=== PATIENT | male | born 1960 | race Caucasian/White ===

== ENCOUNTER 2019-09-01 09:52 | Emergency (ER) | payer BC ==
[2019-09-01 11:04] VITALS: BP 162/100
--- NOTE | 2019-09-01 11:09 | UC ---
UC General HPI - HPI Summary HPI Summary: Patient is a 59-year-old male presenting with tick bite to left abdomen that he noticed last night and is unsure of the time it was attached for. He removed the tick on his own and states he is here for the prophylactic dose of doxycycline to prevent lyme. Denies drainage or bleeding from tick bite. Denies fever, chills, n/v. - History of Current Complaint Chief Complaint: [place] Stated Complaint: TICK BITE Hx Obtained From: Patient Pain Intensity: 0 - Allergy/Home Medications Allergies/Adverse Reactions: Allergies Allergy/AdvReac Type Severity Reaction Status Date / Time No Known Allergies Allergy Verified 09/01/19 11:03 PMH/Surg Hx/FS Hx/Imm Hx Previously Healthy: Yes - Surgical History Surgical History: Yes - Family History Known Family History: Positive: Unknown - Social History Occupation: Retired Alcohol Use: Daily Substance Use Type: None Smoking Status (MU): Heavy Every Day Tobacco Smoker Review of Systems All Other Systems Reviewed And Are Negative: No Constitutional: Positive: Negative. Negative: Fever, Chills Skin: Positive: Other - tick bite of abdomen Respiratory: Positive: Negative Cardiovascular: Positive: Negative Gastrointestinal: Positive: Negative Musculoskeletal: Positive: Negative Neurological: Positive: Negative Physical Exam Triage Information Reviewed: No Appearance: Well-Appearing, No Pain Distress, Well-Nourished Vital Signs: Initial Vital Signs Temp 99.1 F 09/01/19 11:00 Pulse 72 09/01/19 11:00 Resp 14 09/01/19 11:00 BP 162/100 09/01/19 11:00 Pulse Ox 100 09/01/19 11:00 Vital Signs Reviewed: Yes Eyes: Positive: Conjunctiva Clear ENT: Positive: Hearing grossly normal Neck: Positive: Supple Respiratory: Positive: No respiratory distress Neurological: Positive: Alert Psychological: Positive: Age Appropriate Behavior Skin: Positive: Other - tick bite of abdomen. no tick attached. no drainage or bleeding. no sign of infection. Course/Dx - Course Course Of Treatment: I treated with 200mg of doxy and educated on tick bites. Instructed to follow up with PCP if needed and to watch for s/s of infection in the bite over the next few days. Patient voiced understanding and agreed with the treatment plan. - Diagnoses Provider Diagnosis: Tick bite of abdomen Discharge ED - Sign-Out/Discharge Documenting (check all that apply): Patient Departure All imaging exams completed and their final reports reviewed: No Studies - Discharge Plan Condition: Stable Disposition: HOME Prescriptions: DOXYcycline CAP(*) [DOXYcycline 100MG CAP(*)] 200 mg PO ONCE #2 cap Patient Education Materials: Tick Bite (ED) Referrals: Negrito Kenyon MD [Primary Care Provider] - If Needed Additional Instructions: As discussed, take the one-time dose of Doxycycline to prevent Lyme Disease. It is recommended that you take this with food to prevent stomach upset. No further treatment is required. Follow up with the primary care physician if you experience a rash where you were the tick bit you within the next month. Return or go to the emergency room if you experience fever, increasing redness, warmth, or drainage from the area within the next few days. - Billing Disposition and Condition Condition: STABLE Disposition: Home
== END 2019-09-01 11:23 | disposition home or self-care (01) ==
LOC: UCCORT 09:52
DX: S30.861A Insect bite (nonvenomous) of abdominal wall, initial encounter (principal); F17.200 Nicotine dependence, unspecified, uncomplicated; W57.XXXA Bitten or stung by nonvenomous insect and other nonvenomous arthropods, initial encounter; Y92.9 Unspecified place or not applicable
CPT/HCPCS: 99202; G0463